=== PATIENT | female | born 1970 | race Two or more races ===

== ENCOUNTER 2020-08-23 16:11 | Emergency (ER) | payer MEDICAID, OTHER ==
[~2020-08-23] VITALS: Ht 172.7 cm; Wt 113.4 kg
[2020-08-23] MEDS ORDERED: ONDANSETRON HCL 4 MG/2 ML VIAL IV ONE (16:30)
[2020-08-23] MEDS ORDERED: HYDROmorphone HCL 2 MG/ML VL IV ONE (16:30)
[2020-08-23 17:28] LABS: Basophils # (auto) 0.1 10 ^3/uL (0-0.2); Basophils % (auto) 0.5 % (0.0-2.0); Eosinophils # (auto) 0.1 10 ^3/uL (0-0.8); Hematocrit 41.9 % (36.0-46.0); Hemoglobin 14.4 g/dL (12.2-16.2); Lymphocytes # (auto) 1.9 10 ^3/uL (0.4-5.4); Lymphocytes % (auto) 18.2 % (10.0-50.0); Mean Corpuscular Hemoglobin 30.1 pg (28.0-32.0); Mean Corpuscular Hgb Conc. 34.3 g/dL (32.0-36.0); Mean Corpuscular Volume 87.8 fL (80.0-100.0); Monocytes # (auto) 0.5 10 ^3/uL (0-1.3); Neutrophils # (auto) 7.9 10 ^3/uL (1.6-8.6); Neutrophils % (auto) 75.3 % (37.0-80.0); Nucleated Red Blood Cells % 0.1 %; Platelet Count (auto) 274 10^3/uL (140-450); Red Blood Cells 4.77 10^6/uL (4.0-5.20); Red Cell Distribution Width 13.2 % (11.8-14.3); White Blood Cell 10.5 10^3/uL (4.4-10.8)
[2020-08-23 17:45] LABS: Albumin 3.4 g/dL (3.4-5.0); Calcium 8.7 mg/dL (8.5-10.1)
[2020-08-23 17:47] LABS: BUN/Creatinine Ratio 24.7; Bilirubin, Total 0.5 mg/dL (0.2-1.0); Total Protein 7.9 g/dL (6.4-8.2)
[2020-08-23] MEDS ORDERED: IOHEXOL 300 MG/ML 100ML BOTTLE IJ ONE (18:02)
[2020-08-23 19:57] VITALS: BP 121/86
[2020-08-23] MEDS ORDERED: HYDROcodone-ACET 10/325MG TAB PO ONE (20:00)
[2020-08-23 20:28] LABS: Urine Bacteria MOD /hpf (None Seen); Urine Blood 1+ /uL (Negative); Urine Mucus FEW (None Seen); Urine Specific Gravity > 1.050 (1.001-1.035); Urine WBC 2 /hpf (0 - 5)
== END 2020-08-23 20:21 | disposition home or self-care (01) ==
LOC: EDBD 16:11 → ER 16:11
DX: S30.1XXA Contusion of abdominal wall, initial encounter (principal); S20.212A Contusion of left front wall of thorax, initial encounter; V49.9XXA Car occupant (driver) (passenger) injured in unspecified traffic accident, initial encounter; Y93.89 Activity, other specified; Y92.89 Other specified places as the place of occurrence of the external cause; Y99.8 Other external cause status
CPT/HCPCS: 36415; 71260; 74177; 80053; 81001; 85025; 96374; 96375; 99284; J1170; J2405; Q9967

== ENCOUNTER 2022-10-12 17:07 | Inpatient (IN) | payer MEDICAID ==
[~2022-10-12] VITALS: Ht 172.7 cm; Wt 132.0 kg
[2022-10-12] MEDS ORDERED: ALBUTEROL SULF 2.5 MG/0.5ML(0.5%) NEB SOLN NEB ONE (18:15)
[2022-10-12] MEDS ORDERED: IPRATROPIUM BROM 0.5 MG/2.5ML INH SOL NEB ONE (18:15)
[2022-10-12 18:49] LABS: Basophils # (auto) 0 10 ^3/uL (0-0.2); Basophils % (auto) 0.4 % (0.0-2.0); Eosinophils # (auto) 0.1 10 ^3/uL (0-0.8); Eosinophils % (auto) 1.4 % (0.0-7.0); Hematocrit 47.4 % (36.0-46.0); Hemoglobin 15.2 g/dL (12.2-16.2); Lymphocytes # (auto) 2.3 10 ^3/uL (0.4-5.4); Lymphocytes % (auto) 21.8 % (10.0-50.0); Mean Corpuscular Hemoglobin 29.4 pg (28.0-32.0); Mean Corpuscular Hgb Conc. 32.1 g/dL (32.0-36.0); Mean Corpuscular Volume 91.7 fL (80.0-100.0); Monocytes # (auto) 0.8 10 ^3/uL (0-1.3); Monocytes % (auto) 7.4 % (0.0-12.0); Neutrophils # (auto) 7.2 10 ^3/uL (1.6-8.6); Nucleated Red Blood Cells % 0.1 %; Red Blood Cells 5.17 10^6/uL (4.0-5.20); Red Cell Distribution Width 14.2 % (11.8-14.3); White Blood Cell 10.4 10^3/uL (4.4-10.8)
[2022-10-12] MEDS ORDERED: methylPREDNISolone SOD SUCC 125 MG/2 ML VL IV ONE (19:00)
[2022-10-12 20:37] LABS: Albumin 4.1 g/dL (3.4-5.0)
[2022-10-12 20:41] LABS: BUN/Creatinine Ratio 15.1 (10.0-20.0); Bilirubin, Total 1.2 mg/dL (0.2-1.0)
[2022-10-12] MEDS ORDERED: methylPREDNISolone SOD SUCC 125 MG/2 ML VL IM ONE (20:45)
[2022-10-12] MEDS ORDERED: SODIUM CHLORIDE 0.9% 1,000 ML IV ONE (21:15)
[2022-10-12] MEDS ORDERED: IOHEXOL 300 MG/ML 100ML BOTTLE IJ ONE (21:26)
[2022-10-12 22:24] LABS: Urine Bacteria NONE SEEN /hpf (None Seen); Urine Blood 2+ /uL (Negative); Urine Specific Gravity 1.021 (1.001-1.035); Urine WBC 12 /hpf (0 - 5)
[2022-10-12] MEDS ORDERED: PIPERACILLIN-TAZOB 3.375GM 100 ML IV ONE (23:00)
[2022-10-12] MEDS ORDERED: HYDROcodone-ACET 5/325MG TAB PO PRN (23:30)
[2022-10-12] MEDS ORDERED: DOCUSATE SOD 100 MG CAP PO PRN (23:30)
[2022-10-12] MEDS ORDERED: IPRATROPIUM BROM 0.5 MG/2.5ML INH SOL NEB PRN (23:30)
[2022-10-12] MEDS ORDERED: ONDANSETRON HCL 4 MG/2 ML VIAL IV PRN (23:30)
[2022-10-12] MEDS ORDERED: ALBUTEROL SULF 2.5 MG/0.5ML(0.5%) NEB SOLN NEB PRN (23:30)
[2022-10-13] MEDS ORDERED: NITROGLYCERIN 0.4 MG SL TAB SL PRN
[2022-10-13] MEDS ORDERED: MORPHINE SULFATE INJ 2 MG/ml SYRG IV PRN
[2022-10-13] MEDS: SODIUM CHLORIDE 0.9% 1,000 ML IV SCH ×2 (00:57→17:47)
[2022-10-13 02:45] VITALS: BP 131/73
[2022-10-13] MEDS: methylPREDNISolone SOD SUCC 40 MG/ML VL IV SCH ×3 (06:11→21:55)
[2022-10-13 06:34] LABS: Basophils # (auto) 0 10 ^3/uL (0-0.2); Basophils % (auto) 0.1 % (0.0-2.0); Eosinophils # (auto) 0 10 ^3/uL (0-0.8); Hematocrit 40.9 % (36.0-46.0); Hemoglobin 13.7 g/dL (12.2-16.2); Lymphocytes # (auto) 0.7 10 ^3/uL (0.4-5.4); Lymphocytes % (auto) 8.8 % (10.0-50.0); Mean Corpuscular Hgb Conc. 33.5 g/dL (32.0-36.0); Mean Corpuscular Volume 89.5 fL (80.0-100.0); Monocytes # (auto) 0.1 10 ^3/uL (0-1.3); Monocytes % (auto) 1.3 % (0.0-12.0); Neutrophils % (auto) 89.8 % (37.0-80.0); Red Blood Cells 4.57 10^6/uL (4.0-5.20); Red Cell Distribution Width 13.8 % (11.8-14.3); White Blood Cell 7.8 10^3/uL (4.4-10.8)
[2022-10-13 06:43] LABS: Albumin 3.2 g/dL (3.4-5.0); BUN/Creatinine Ratio 13.4 (10.0-20.0); Calcium 8.5 mg/dL (8.5-10.1); Potassium 4.4 mmol/L (3.5-5.1)
[2022-10-13 06:46] LABS: Bilirubin, Total 1.2 mg/dL (0.2-1.0); Total Protein 7.6 g/dL (6.4-8.2)
[2022-10-13] MEDS: FAMOTIDINE (10MG/ML) 2ML VL IV SCH ×2 (09:50→21:55)
[2022-10-13] MEDS: ASPirin 81 mg TAB PO SCH (09:50)
[2022-10-13] MEDS: PIPERACILLIN-TAZOB 3.375GM 100 ML IV SCH ×2 (09:51→21:52)
[2022-10-13 15:50] VITALS: BP 144/86
[2022-10-13] MEDS ORDERED: HYDR-4069 PO (17:29)
[2022-10-13] MEDS ORDERED: ALBU108A5 IN (17:29)
[2022-10-13] MEDS ORDERED: FLUT110A INH (17:29)
[2022-10-13] MEDS ORDERED: MONT10TA23 PO (17:29)
[2022-10-13] MEDS ORDERED: IPRIH INH (17:29)
[2022-10-13] MEDS: ACETAMINOPHEN 325 MG TAB PO PRN (18:42)
[2022-10-13 20:00] VITALS: BP 129/84
[2022-10-13 22:00] VITALS: BP 129/84
[2022-10-14 05:00] VITALS: BP 123/62
[2022-10-14] MEDS: methylPREDNISolone SOD SUCC 40 MG/ML VL IV SCH ×3 (06:15→21:55)
[2022-10-14 08:00] VITALS: BP 129/69
[2022-10-14 09:00] VITALS: BP 129/69
[2022-10-14] MEDS: PIPERACILLIN-TAZOB 3.375GM 100 ML IV SCH ×2 (09:09→21:56)
[2022-10-14] MEDS: FAMOTIDINE (10MG/ML) 2ML VL IV SCH ×2 (09:09→21:55)
[2022-10-14] MEDS: ASPirin 81 mg TAB PO SCH (09:10)
[2022-10-14 13:00] VITALS: BP 122/60
[2022-10-14 17:00] VITALS: BP 120/66
[2022-10-14] MEDS: SODIUM CHLORIDE 0.9% 1,000 ML IV SCH (18:01)
[2022-10-14] MEDS: ACETAMINOPHEN 325 MG TAB PO PRN (21:57)
[2022-10-14 22:00] VITALS: BP 120/55
[2022-10-15] MEDS: SODIUM CHLORIDE 0.9% 1,000 ML IV SCH ×2 (01:30→16:39)
[2022-10-15] MEDS: methylPREDNISolone SOD SUCC 40 MG/ML VL IV SCH ×2 (04:37→13:40)
[2022-10-15 05:00] VITALS: BP 122/60
[2022-10-15] MEDS: ASPirin 81 mg TAB PO SCH (08:46)
[2022-10-15 09:00] VITALS: BP 146/95
[2022-10-15] MEDS: FAMOTIDINE (10MG/ML) 2ML VL IV SCH (09:33)
[2022-10-15] MEDS: PIPERACILLIN-TAZOB 3.375GM 100 ML IV SCH (09:48)
[2022-10-15] MEDS: ACETAMINOPHEN 325 MG TAB PO PRN (11:50)
[2022-10-15 13:15] VITALS: BP 155/96
[2022-10-15 17:00] VITALS: BP 152/69
[2022-10-15] MEDS ORDERED: BACDST PO (17:29)
[2022-10-15] MEDS ORDERED: SULFAMETHOX W/TRIMETH(800/160MG) DS TAB PO ONE (17:30)
[2022-10-15 17:59] VITALS: BP 132/65
== END 2022-10-15 19:44 | disposition home or self-care (01) | DRG 721 ==
LOC: ER 17:07 → OVERFLOW 23:58 → CENTRAL 10-13 15:50
PROVIDERS: ADMIT Nurse Practitioner Family; ATTEND Internal Medicine
DX: T81.41XA Infection following a procedure, superficial incisional surgical site, initial encounter (principal); J45.901 Unspecified asthma with (acute) exacerbation; L76.32 Postprocedural hematoma of skin and subcutaneous tissue following other procedure; E66.01 Morbid (severe) obesity due to excess calories; R79.82 Elevated C-reactive protein (CRP); J98.11 Atelectasis; Z20.822 Contact with and (suspected) exposure to COVID-19; Y82.8 Other medical devices associated with adverse incidents; Y83.8 Other surgical procedures as the cause of abnormal reaction of the patient, or of later complication, without mention of misadventure at the time of the procedure; Z90.49 Acquired absence of other specified parts of digestive tract; Z68.41 Body mass index [BMI] 40.0-44.9, adult; Z88.1 Allergy status to other antibiotic agents; Y92.89 Other specified places as the place of occurrence of the external cause
CPT/HCPCS: 36415; 71045; 74177; 80053; 81001; 83605; 83880; 84484; 85025; 85379; 85652; 86141; 87040; 87086; 87426; 94640; 96365; 96372; 96375; G0378; J2543; J3490

== ENCOUNTER 2023-05-07 06:52 | Emergency (ER) | payer MEDICAID ==
[~2023-05-07] VITALS: Ht 172.7 cm; Wt 110.0 kg
[~2023-05-07 06:52] MED LIST: ALBU108A5 IN; BACDST PO; FLUT110A INH; HYDR-4069 PO; IPRIH INH; MONT10TA23 PO
[2023-05-07 07:59] VITALS: BP 106/70; PULSE 92; RESP 16; TEMP 97.1; O2SAT 96
[2023-05-07 08:51] LABS: Basophils # (auto) 0 10 ^3/uL (0-0.2); Basophils % (auto) 0.4 % (0.0-2.0); Eosinophils # (auto) 0.1 10 ^3/uL (0-0.8); Eosinophils % (auto) 1.8 % (0.0-7.0); Hematocrit 38.9 % (36.0-46.0); Hemoglobin 12.9 g/dL (12.2-16.2); Lymphocytes # (auto) 1.3 10 ^3/uL (0.4-5.4); Lymphocytes % (auto) 16.4 % (10.0-50.0); Mean Corpuscular Hemoglobin 28.7 pg (28.0-32.0); Mean Corpuscular Hgb Conc. 33.3 g/dL (32.0-36.0); Mean Corpuscular Volume 86.1 fL (80.0-100.0); Monocytes # (auto) 0.6 10 ^3/uL (0-1.3); Neutrophils # (auto) 5.8 10 ^3/uL (1.6-8.6); Neutrophils % (auto) 73.4 % (37.0-80.0); Nucleated Red Blood Cells % 0.1 %; Red Blood Cells 4.51 10^6/uL (4.0-5.20); Red Cell Distribution Width 14.2 % (11.8-14.3); White Blood Cell 7.8 10^3/uL (4.4-10.8)
== END 2023-05-07 09:52 | disposition home or self-care (01) ==
LOC: ER 06:52
DX: L02.211 Cutaneous abscess of abdominal wall (principal); J45.909 Unspecified asthma, uncomplicated; Z90.49 Acquired absence of other specified parts of digestive tract; Z79.899 Other long term (current) drug therapy; Z88.1 Allergy status to other antibiotic agents
CPT/HCPCS: 36415; 83605; 85025; 87040; 87077; 87186; 87205

== ENCOUNTER 2023-06-06 09:58 | Emergency (ER) | payer MEDICAID ==
[~2023-06-06] VITALS: Ht 172.7 cm; Wt 110.0 kg
[2023-06-06 11:45] VITALS: BP 149/85; PULSE 72; RESP 16; TEMP 98.6; O2SAT 97
== END 2023-06-06 15:41 | disposition home or self-care (01) ==
LOC: ER 09:58
DX: M79.89 Other specified soft tissue disorders (principal); J45.909 Unspecified asthma, uncomplicated; Z46.89 Encounter for fitting and adjustment of other specified devices; Z98.890 Other specified postprocedural states; Z88.8 Allergy status to other drugs, medicaments and biological substances; Z79.899 Other long term (current) drug therapy